=== PATIENT | female | born 1995 | race Caucasian/White ===

== ENCOUNTER 2020-09-14 08:00 | Outpatient (CLI) | payer OTHER ==
[2020-09-14 22:09] LABS: BACTERIAL VAGINOSIS DNA NEGATIVE (NEGATIVE); CANDIDA GLABRATA DNA NEGATIVE (NEGATIVE); CANDIDA GROUP DNA POSITIVE (NEGATIVE); CANDIDA KRUSEI DNA NEGATIVE (NEGATIVE); TRICHOMONAS VAGINALIS DNA NEGATIVE (NEGATIVE)
== END 2020-09-14 23:59 | disposition home or self-care (01) ==
LOC: LAB.N 08:00
PROVIDERS: ATTEND Family Medicine
DX: N76.0 Acute vaginitis (principal)
CPT/HCPCS: 87661; 87801

== ENCOUNTER 2020-11-30 08:00 | Outpatient (CLI) | payer OTHER ==
[2020-11-30 15:59] LABS: MUDS CUTOFF CONCENTRATIONS CUTOFF CONC BELOW:
[2020-11-30 16:14] LABS: BILIRUBIN,URINE NEGATIVE (NEGATIVE); GLUCOSE, URINE (UA) NEGATIVE (NEGATIVE); KETONES,URINE (UA) NEGATIVE (NEGATIVE); LEUKOCYTE ESTERASE, URINE NEGATIVE (NEGATIVE); NITRITE,URINE NEGATIVE (NEGATIVE); OCCULT BLOOD,URINE NEGATIVE (NEGATIVE); PROTEIN,URINE NEGATIVE (NEGATIVE); UROBILINOGEN,URINE 0.2 (NORMAL) E.U./dL (NORMAL)
[2020-11-30 16:18] LABS: BACTERIA,URINE None Seen /HPF (None Seen); CLARITY,URINE CLEAR (CLEAR); RBC,URINE 0-5 /HPF (0-5); SQUAMOUS EPITHELIAL CELL,UR RARE Squamous (<= Few); WBC,URINE 0-3 /HPF (0-5)
[2020-11-30 16:33] LABS: AMPHETAMINE SCREEN,URINE NEGATIVE (NEGATIVE); BARBITURATE SCREEN,UR NEGATIVE (NEGATIVE); BENZODIAZEPINES SCREEN, URINE NEGATIVE (NEGATIVE); COCAINE SCREEN URINE NEGATIVE (NEGATIVE); METHADONE SCREEN, URINE NEGATIVE (NEGATIVE); METHAMPHETAMINES SCREEN, URINE NEGATIVE (NEGATIVE); OPIATE SCREEN, URINE NEGATIVE (NEGATIVE); OXYCODONE SCREEN, URINE NEGATIVE (NEGATIVE); PROPOXYPHENE SCREEN, URINE NEGATIVE (NEGATIVE); THC CANNABINOID SCREEN, URINE NEGATIVE (NEGATIVE); TRICYCLIC ANTIDEPRESSANT,URINE NEGATIVE (NEGATIVE)
== END 2020-11-30 23:59 | disposition home or self-care (01) ==
LOC: LAB.WC 08:00
PROVIDERS: ATTEND Nurse Practitioner Obstetrics & Gynecology
DX: Z32.01 Encounter for pregnancy test, result positive (principal)
CPT/HCPCS: 80306; 81001; 87086

== ENCOUNTER 2020-12-05 08:00 | Outpatient (CLI) | payer OTHER ==
[2020-12-05 18:36] LABS: BASOPHILS # (AUTO) 0.1 10^3/uL (0.0-0.1); BASOPHILS % (AUTO) 0.4 %; EOSINOPHILS # (AUTO) 0.1 10^3/uL (0.0-0.7); EOSINOPHILS % (AUTO) 0.9 %; HCT - HEMATOCRIT 40.9 % (37.0-47.0); HGB - HEMOGLOBIN 13.6 g/dL (12.0-16.0); LYMPHOCYTES # (AUTO) 2.9 10^3/uL (1.5-3.5); LYMPHOCYTES % (AUTO) 21.3 %; MEAN CORPUSCULAR HEMOGLOBIN 31.4 pg (27.0-31.0); MEAN CORPUSCULAR HGB CONC 33.3 g/dL (32.0-36.0); MEAN CORPUSCULAR VOLUME 94.5 fL (81.0-99.0); MEAN PLATELET VOLUME 9.3 fL (7.9-10.8); MONOCYTES # (AUTO) 1.1 10^3/uL (0.0-1.0); MONOCYTES % (AUTO) 8.3 %; NEUTROPHILS # (AUTO) 9.2 10^3/uL (1.5-6.6); NEUTROPHILS % (AUTO) 68.8 %; PLT - PLATELET COUNT 356 10^3/uL (130-450); RED BLOOD COUNT 4.33 10^6/uL (4.20-5.40); RED CELL DISTRIBUTION WIDTH 11.9 % (12.0-15.0); WHITE BLOOD COUNT 13.4 x10^3/uL (4.8-10.8)
[2020-12-06 08:47] LABS: HIV AG/AB 4TH GEN NON-REACTIVE (NON-REACTIVE)
[2020-12-06 12:26] LABS: HEPATITIS C ANTIBODY NON-REACTIVE (NON-REACTIVE)
[2020-12-06 12:28] LABS: HEPATITIS B SURFACE ANTIGEN NON-REACTIVE (NON-REACTIVE)
== END 2020-12-05 23:59 | disposition home or self-care (01) ==
LOC: LAB.WCP 08:00
PROVIDERS: ATTEND Nurse Practitioner Obstetrics & Gynecology
DX: Z36.89 Encounter for other specified antenatal screening (principal)
CPT/HCPCS: 36415; 85025; 86592; 86762; 86787; 86803; 86850; 86900; 86901; 87340; 87389

== ENCOUNTER 2020-12-08 09:24 | Outpatient (CLI) | payer OTHER ==
--- NOTE | 2020-12-08 17:57 | Ultrasound Report ---
PROCEDURE: OB First Trimester w/TV INDICATIONS: +PREG TEST OUTSIDE/PRIOR DATING DATA: Last menstrual period (LMP): 09/01/2020. LMP-based estimated date of delivery (NELLIE): 07/06/2021. First dating scan (date and location): 12/08/2020. Estimated date of delivery (NELLIE) from first dating scan: 07/14/2021. The below data below was generated using the ultrasound estimated NELLIE of 12/08/2020 TECHNIQUE: Real-time scanning was performed of the fetus and maternal pelvic organs, with image documentation. Endovaginal scanning was also performed to better visualize the fetus and maternal ovaries. COMPARISON: None available FINDINGS: Embryo: There is an intrauterine gestational sac seen, with a pole present, which measures 2.2 cm, which corresponds to an estimated gestational age of 8 weeks 6 days. cardiac activity is s een, with a measured heart rate of 185 bpm. No significant perigestational/subchorionic hemorrhage can be seen. Measurement variability in dating: +/- 4 weeks by LMP, +/- 7 days by mean sac diameter (use before 6 weeks gestation if crown-rump length not able to be measured), +/- 5 days by crown-rump length (6-12 weeks gestation). Maternal organs: Ovaries are within normal limits, with a left ovarian corpus luteum seen. IMPRESSION: Single live intrauterine . There is an 8 day discrepancy between the estimated gestational age based upon these images and the e stimated gestational age based upon the given date of the last menstrual period. Please correlate wit h precise clinical data. Reviewed by: Magno Sequeira MD on 12/08/2020 4:56 PM JEFFERY Approved by: Magno Sequeira MD on 12/08/2020 4:56 PM JEFFERY Station ID: [id number]
== END 2020-12-08 09:25 | disposition home or self-care (01) ==
LOC: DI 09:24
PROVIDERS: ATTEND Nurse Practitioner Obstetrics & Gynecology
DX: Z32.01 Encounter for pregnancy test, result positive (principal)

== ENCOUNTER 2020-12-24 08:00 | Outpatient (CLI) | payer OTHER ==
[2020-12-24 21:42] LABS: CHLAMYDIA TRACHOMATIS DNA NEGATIVE (NEGATIVE); NEISSERIA GONORRHOEAE DNA NEGATIVE (NEGATIVE); TRICHOMONAS VAGINALIS DNA NEGATIVE (NEGATIVE)
== END 2020-12-24 23:59 | disposition home or self-care (01) ==
LOC: LAB.WC 08:00
PROVIDERS: ATTEND Advanced Practice Midwife
DX: Z34.00 Encounter for supervision of normal first pregnancy, unspecified trimester (principal); Z36.89 Encounter for other specified antenatal screening
CPT/HCPCS: 87491; 87591; 87661

== ENCOUNTER 2021-01-22 08:00 | Outpatient (CLI) | payer OTHER ==
[2021-01-22 19:29] LABS: BILIRUBIN,URINE NEGATIVE (NEGATIVE); CLARITY,URINE CLEAR (CLEAR); GLUCOSE, URINE (UA) NEGATIVE (NEGATIVE); KETONES,URINE (UA) NEGATIVE (NEGATIVE); LEUKOCYTE ESTERASE, URINE NEGATIVE (NEGATIVE); NITRITE,URINE NEGATIVE (NEGATIVE); OCCULT BLOOD,URINE NEGATIVE (NEGATIVE); PH,URINE 6.5 PH (5.0-7.5); PROTEIN,URINE NEGATIVE (NEGATIVE); UROBILINOGEN,URINE 0.2 (NORMAL) E.U./dL (NORMAL)
[2021-01-22 20:23] LABS: BACTERIA,URINE Few /HPF (None Seen); RBC,URINE None Seen /HPF (0-5); SQUAMOUS EPITHELIAL CELL,UR MOD Squamous (<= Few); WBC,URINE 0-3 /HPF (0-5)
== END 2021-01-22 23:59 | disposition home or self-care (01) ==
LOC: LAB.WC 08:00
PROVIDERS: ATTEND Advanced Practice Midwife
DX: R30.0 Dysuria (principal)
CPT/HCPCS: 81001; 87086

== ENCOUNTER 2021-01-22 10:55 | Outpatient (CLI) | payer OTHER ==
[2021-01-23 12:17] LABS: AGE RISK DOWN SYNDROME 1 IN 929; CALC'D GESTATIONAL AGE 15.3 weeks; CIGARETTE SMOKER? NOT GIVEN; DONOR AGE: EGG RETRIEVAL NOT GIVEN; DONOR EGG NO; ESTRIOL MOM 1.32; HX OF NEURAL TUBE DEFECTS NO; INHIBIN A MOM 0.94; INSULIN DEPEND DIABETIC NO; MATERNAL WEIGHT 155 lbs; MSS DOWN SYNDROME RISK <1 IN 5000; MSS3 TRISOMY 18 RISK <1 IN 5000; NUMBER OF FETUSES 1; PREV PREGNANCY DOWN SYND NO; RISK FOR ONTD 1 IN 3600
== END 2021-01-22 10:56 | disposition home or self-care (01) ==
LOC: LAB.N 10:55
PROVIDERS: ATTEND Advanced Practice Midwife
DX: O99.891 Other specified diseases and conditions complicating pregnancy (principal); R30.0 Dysuria; Z36.0 Encounter for antenatal screening for chromosomal anomalies; Z36.89 Encounter for other specified antenatal screening
CPT/HCPCS: 36415; 81001; 81511; 87086

== ENCOUNTER 2021-02-18 10:38 | Outpatient (CLI) | payer OTHER ==
--- NOTE | 2021-02-18 16:53 | Ultrasound Report ---
PROCEDURE: OB Detailed Eval INDICATIONS: SUPERVISION NORMAL OUTSIDE/PRIOR DATING DATA: Last menstrual period (LMP): 09/29/2020. LMP-based estimated date of delivery (NELLIE): 07/06/2021. First dating scan (date and location): 12/08/2020. Estimated date of delivery (NELLIE) from first dating scan: 07/14/2021. The below data below was generated using the provider provided NELLIE of 07/14/2021 TECHNIQUE: Real-time scanning was performed of the fetus, with image documentation and biometric measurements. Endovaginal scanning: Not performed COMPARISON: None. FINDINGS: General: A single living intrauterine gestation is present. Presentation: Vertex Placenta: Placental position is anterior, without previa. Amniotic fluid index: 15 cm, normal for gestational age. heart rate: 153 beats per minute. Maternal cervical canal: 4.2 cm long; normal length is 2.5 cm or more. biometrics: Biparietal diameter: 4.4 cm, 19 weeks 2 days Head circumference: 16.5 cm, 19 weeks 2 days Abdominal circumference: 13.7 cm, 19 weeks 2 days Femur length: 3 cm, 19 weeks 2 days Estimated gestational age from initial scan: not applicable. Composite gestational age from present scan: 19 weeks 2 days Estimated weight and percentile: 284 g, 55th percentile Measurement variability in biometric dating: +/- 10 days from 12-20 weeks gestation, +/- 2 weeks from 20-30 weeks gestation, +/- 3 weeks at 30 weeks gestation or later. Anatomic survey: Neuro: Ventricles are normal at less than 10 mm. Cisterna magna is normal at 3-11 mm. Cerebellum i s normal in size and morphology. Nuchal skin fold: Normal at less than 6 mm between 14 and 20 weeks gestational age. Face: Nose and lips, facial profile are normal. Spine: No evidence for spina bifida. Heart: 4-chambered heart is present; cardiac outflow tracts are not well seen Diaphragm: Diaphragm is intact. Stomach: Left-sided stomach is present. Kidneys: No hydronephrosis. Normal is less than 5 mm in 2nd trimester, less than 7 mm in 3rd trimester. Cord: 3 vessel cord has orthotopic insertion. Bladder: Normal in size. Extremities: All 4 extremities are visualized. IMPRESSION: Single live intrauterine gestation. cardiac outflow tracts not well visualized; repeat exam recommended. Otherwise normal anatomic survey. Reviewed by: Matt Biggs MD on 02/18/2021 4:51 PM PDT Approved by: Matt Biggs MD on 02/18/2021 4:51 PM PDT Station ID: [id number]
== END 2021-02-18 10:39 | disposition home or self-care (01) ==
LOC: DI 10:38
PROVIDERS: ATTEND Advanced Practice Midwife
DX: Z34.00 Encounter for supervision of normal first pregnancy, unspecified trimester (principal)

== ENCOUNTER 2021-02-19 13:27 | Outpatient (CLI) | payer OTHER ==
[2021-02-19 18:18] LABS: HCT - HEMATOCRIT 38.7 % (37.0-47.0); MEAN CORPUSCULAR HEMOGLOBIN 32.4 pg (27.0-31.0); MEAN CORPUSCULAR HGB CONC 33.6 g/dL (32.0-36.0); MEAN CORPUSCULAR VOLUME 96.5 fL (81.0-99.0); MEAN PLATELET VOLUME 9.3 fL (7.9-10.8); RED BLOOD COUNT 4.01 10^6/uL (4.20-5.40); WHITE BLOOD COUNT 13.5 x10^3/uL (4.8-10.8)
[2021-02-19 18:22] LABS: POTASSIUM 3.8 mmol/L (3.5-5.0)
== END 2021-02-19 13:28 | disposition home or self-care (01) ==
LOC: LAB.N 13:27
PROVIDERS: ATTEND Nurse Practitioner Obstetrics & Gynecology
DX: R06.02 Shortness of breath (principal)
CPT/HCPCS: 36415; 80051; 85027

== ENCOUNTER 2021-02-24 18:03 | Outpatient (CLI) | payer OTHER ==
--- NOTE | 2021-02-24 21:37 | Ultrasound Report ---
PROCEDURE: OB F/U or Repeat INDICATIONS: SCREENING FOR CHROMOSOMAL ANOMALIES OUTSIDE/PRIOR DATING DATA: Last menstrual period (LMP): 09/29/2020. LMP-based estimated date of delivery (NELLIE): 07/06/2021. First dating scan (date and location): 12/08/2020. Estimated date of delivery (NELLIE) from first dating scan: 07/14/2021. The below data below was generated using the first trimester NELLIE of 07/14/2021 TECHNIQUE: Real-time scanning was performed of the fetus, with image documentation and biometric measurements. Endovaginal scanning: Not performed COMPARISON: 02/18/2021 FINDINGS: General: A single living intrauterine gestation is present. Presentation: Cephalic Placenta: Placental position is anterior, without previa. Amniotic fluid index: 18.2 cm, normal for gestational age. heart rate: 148 beats per minute. Maternal cervical canal: Closed and 3.9 cm long; normal length is 2.5 cm or more. Other: 4 chambered heart and cardiac outflow tracts were well seen and appear normal. IMPRESSION: 1. Single live intrauterine . 2. Completion of anatomic survey with identification of normal 4 chambered heart and cardiac outflow tracts. Reviewed by: Lashanda Senior MD on 02/24/2021 9:35 PM PDT Approved by: Lashanda Senior MD on 02/24/2021 9:35 PM PDT Station ID: [id number]
== END 2021-02-24 18:04 | disposition home or self-care (01) ==
LOC: DI 18:03
PROVIDERS: ATTEND Nurse Practitioner Obstetrics & Gynecology
DX: Z36.0 Encounter for antenatal screening for chromosomal anomalies (principal)

== ENCOUNTER 2021-04-04 09:14 | Outpatient (CLI) | payer OTHER ==
[2021-04-04 18:01] LABS: HCT - HEMATOCRIT 39.9 % (37.0-47.0); MEAN CORPUSCULAR HEMOGLOBIN 32.3 pg (27.0-31.0); MEAN CORPUSCULAR HGB CONC 32.6 g/dL (32.0-36.0); MEAN PLATELET VOLUME 8.9 fL (7.9-10.8); RED BLOOD COUNT 4.03 10^6/uL (4.20-5.40); RED CELL DISTRIBUTION WIDTH 12.6 % (12.0-15.0); WHITE BLOOD COUNT 13.2 x10^3/uL (4.8-10.8)
== END 2021-04-04 09:15 | disposition home or self-care (01) ==
LOC: LAB.N 09:14
PROVIDERS: ATTEND Nurse Practitioner Obstetrics & Gynecology
DX: Z36.89 Encounter for other specified antenatal screening (principal)
CPT/HCPCS: 36415; 82950; 85027

== ENCOUNTER 2021-04-12 14:00 | Outpatient (CLI) | payer OTHER ==
[2021-04-12 15:42] LABS: BILIRUBIN,URINE NEGATIVE (NEGATIVE); GLUCOSE, URINE (UA) NEGATIVE (NEGATIVE); KETONES,URINE (UA) NEGATIVE (NEGATIVE); LEUKOCYTE ESTERASE, URINE NEGATIVE (NEGATIVE); NITRITE,URINE NEGATIVE (NEGATIVE); OCCULT BLOOD,URINE NEGATIVE (NEGATIVE); PROTEIN,URINE NEGATIVE (NEGATIVE); UROBILINOGEN,URINE 0.2 (NORMAL) E.U./dL (NORMAL)
[2021-04-12 15:45] LABS: BACTERIA,URINE Rare /HPF (None Seen); CLARITY,URINE CLEAR (CLEAR); RBC,URINE 0-5 /HPF (0-5); SQUAMOUS EPITHELIAL CELL,UR RARE Squamous (<= Few); WBC,URINE 0-3 /HPF (0-5)
== END 2021-04-12 23:59 | disposition home or self-care (01) ==
LOC: LAB.WC 14:00
PROVIDERS: ATTEND Nurse Practitioner Obstetrics & Gynecology
DX: Z34.90 Encounter for supervision of normal pregnancy, unspecified, unspecified trimester (principal)
CPT/HCPCS: 81001; 86769; 87086

== ENCOUNTER 2021-04-12 15:03 | Outpatient (CLI) | payer OTHER | END 2021-04-12 15:04 | disposition home or self-care (01) | LOC: LAB.N 15:03 | PROVIDERS: ATTEND Nurse Practitioner Obstetrics & Gynecology | DX: Z01.84 Encounter for antibody response examination (principal) | CPT/HCPCS: 86769 ==

== ENCOUNTER 2021-06-18 08:00 | Outpatient (CLI) | payer OTHER | END 2021-06-18 23:59 | LOC: LAB.WC 08:00 | PROVIDERS: ATTEND Nurse Practitioner Obstetrics & Gynecology | DX: Z36.85 Encounter for antenatal screening for Streptococcus B (principal) | CPT/HCPCS: 87797 ==

== ENCOUNTER 2021-06-28 08:00 | Outpatient (CLI) | payer OTHER | END 2021-06-28 23:59 | disposition home or self-care (01) | LOC: LAB.WC 08:00 | PROVIDERS: ATTEND Nurse Practitioner Obstetrics & Gynecology | DX: R30.0 Dysuria (principal) | CPT/HCPCS: 87086 ==

== ENCOUNTER 2021-07-22 10:16 | Outpatient (CLI) | payer OTHER ==
[2021-07-22 17:02] VITALS: BP 116/79
--- NOTE | 2021-07-25 16:19 | PROCEDURE REPORT ---
- HPI Diagnosis/Indication for NST: Other (41 weeks gestation) Current EDU 07/14/21 Gestation 41 Weeks and 1 Days 2 Para 1 Vital Signs Blood Pressure 127/85 H 07/22/21 10:32 Temperature 98.4 F 07/22/21 10:36 Heart Rate 76 07/22/21 10:36 Respiratory Rate 16 07/22/21 10:36 Blood Pressure 116/79 07/22/21 10:45 O2 Saturation - NST Procedure NST Procedure Start Date 07/22/21 Start Time 10:26 Stop Time 11:43 Vibroacoustic Stimulation Used Yes Patient States Movement Yes - Results and Plan Plan: Patient is a 26-year-old G2, P1 at 41 weeks 1 day gestation here for scheduled NST. NST Performed 07/22/2021 NST Read 07/22/2021 FHT: 120 beats per minute baseline, moderate variability, accelerations present, no decelerations. [place]: Quiescent Diagnosis 41 weeks gestation Reactive NST Continue with twice weekly NST.
== END 2021-07-22 11:45 | disposition home or self-care (01) ==
LOC: WFO 10:16 → FBP 10:20 → WFO 11:45
PROVIDERS: ATTEND Obstetrics & Gynecology
DX: O48.0 Post-term pregnancy (principal); Z3A.41 41 weeks gestation of pregnancy
CPT/HCPCS: 59025; 99214

== ENCOUNTER 2021-07-23 18:05 | Inpatient (IN) | payer OTHER ==
[2021-07-23] MEDS ORDERED: METHYLERGONOVINE 0.2 MG/ML VIAL IM PRN (18:29)
[2021-07-23] MEDS ORDERED: TERBUTALINE 1 MG/ML VIAL SUBQ PRN (18:29)
[2021-07-23] MEDS ORDERED: OXYTOCIN 10 UNIT/ML VIAL IM PRN (18:29)
[2021-07-23] MEDS ORDERED: fentaNYL 100 MCG/2 ML VIAL IVP PRN (18:29)
[2021-07-23] MEDS ORDERED: miSOPROStoL 200 MCG TABLET BC PRN (18:29)
[2021-07-23] MEDS ORDERED: LIDOCAINE-MPF 1% 30 ML VIAL ID PRN (18:29)
[2021-07-23] MEDS ORDERED: CARBOPROST TROMETHAMINE 250 MCG/ML AMP IM PRN (18:29)
[2021-07-23] MEDS ORDERED: TRANEXAMIC ACID IN NACL 1,000 MG/100 ML BAG IV PRN (18:29)
[2021-07-23] MEDS ORDERED: AMPICILLIN 2 GM in SODIUM CHLORIDE 0.9% MINIBAG 100 ML IV ONE (18:29)
[2021-07-23] MEDS ORDERED: SODIUM CHLORIDE FLUSH 0.9% 10 ML SYRINGE IVP PRN (18:29)
[2021-07-23] MEDS ORDERED: OXYTOCIN/SODIUM CHLORIDE 500 ML IV PRN (18:29)
[2021-07-23] MEDS ORDERED: LACTATED RINGERS 500 ML IV ONE (18:29)
[2021-07-23] MEDS ORDERED: miSOPROStoL 200 MCG TABLET PR PRN (18:29)
[2021-07-23] MEDS ORDERED: SODIUM CHLORIDE FLUSH 0.9% 10 ML SYRINGE IVP SCH (19:00)
[2021-07-23] MEDS ORDERED: AMPICILLIN 1 GM in SODIUM CHLORIDE 0.9% MINIBAG 100 ML IV SCH (19:00)
[2021-07-23] MEDS ORDERED: ROPIVACAINE 0.2% 200 MG/100 ML BAG EP ONE (19:10)
[2021-07-23 19:24] LABS: BASOPHILS % (AUTO) 0.6 %; HCT - HEMATOCRIT 43.3 % (37.0-47.0); HGB - HEMOGLOBIN 15.1 g/dL (12.0-16.0); LYMPHOCYTES % (AUTO) 21.8 %; MEAN CORPUSCULAR HEMOGLOBIN 32.3 pg (27.0-31.0); MEAN CORPUSCULAR HGB CONC 34.9 g/dL (32.0-36.0); MEAN CORPUSCULAR VOLUME 92.7 fL (81.0-99.0); MEAN PLATELET VOLUME 9.7 fL (7.9-10.8); MONOCYTES % (AUTO) 8.7 %; PLT - PLATELET COUNT 301 10^3/uL (130-450); RED BLOOD COUNT 4.67 10^6/uL (4.20-5.40); RED CELL DISTRIBUTION WIDTH 12.6 % (12.0-15.0); WHITE BLOOD COUNT 17.7 x10^3/uL (4.8-10.8)
[2021-07-23] MEDS: LACTATED RINGERS 1,000 ML IV SCH ×2 (19:28→21:12)
[2021-07-23 19:39] LABS: ABNORMAL LYMPHS % (MANUAL) 0 %; BAND NEUTROPHILS % (MANUAL) 0 %
[2021-07-23] MEDS ORDERED: ePHEDrine 50 MG/ML VIAL IVP ONE (19:53)
[2021-07-23] MEDS ORDERED: ONDANSETRON 4 MG/2 ML VIAL IVP PRN (19:55)
[2021-07-23] MEDS ORDERED: NALOXONE 0.4 MG/ML VIAL IVP PRN (19:55)
[2021-07-23] MEDS ORDERED: diphenhydrAMINE INJ 50 MG/ML VIAL IVP PRN (19:55)
[2021-07-23] MEDS ORDERED: NALBUPHINE 10 MG/ML AMP IVP PRN (19:55)
[2021-07-23] MEDS ORDERED: ePHEDrine 50 MG/ML VIAL IVP PRN (19:55)
[2021-07-23] MEDS ORDERED: METOCLOPRAMIDE 10 MG/2 ML VIAL IVP PRN (19:55)
[2021-07-23] MEDS ORDERED: ROPIVACAINE 0.2% 200 MG/100 ML BAG EP PRN (19:55)
--- NOTE | 2021-07-23 20:01 | ANESTHESIA ---
Pre-Anesthesia VS, & Labs - Diagnosis active labor - Procedure labor epidural Height: 5 ft 7 in - NPO >8 hours - Is Patient ?: Yes - Lab Results Current Lab Results: Laboratory Tests 07/23/21 18:30: WBC 17.7 H, RBC 4.67, Hgb 15.1, Hct 43.3, MCV 92.7, MCH 32.3 H, MCHC 34.9, RDW 12.6, Plt Count 301, MPV 9.7 Fish Bones: 07/23/21 18:30 Home Medications and Allergies Active Medications Carboprost Tromethamine (Carboprost Tromethamine 250 Mcg/Ml Amp) 250 mcg IM ONCE PRN PRN Reason: Hemorrhage Stop: 07/28/21 18:28 Diphenhydramine HCl (Diphenhydramine Inj 50 Mg/Ml Vial) 12.5 - 25 mg IVP Q6HR PRN PRN Reason: ITCHING Ephedrine Sulfate (Ephedrine 50 Mg/Ml Vial) 5 mg IVP Q5M PRN PRN Reason: For SBP<100;give until SBP>100 Fentanyl (Fentanyl 100 Mcg/2 Ml Vial) 50 mcg IVP Q1H PRN PRN Reason: Severe Pain (score 7-10) Oxytocin/Sodium Chloride (Pitocin/Sodium Chloride) 500 mls @ 999 mls/hr IV PRN PRN; Protocol PRN Reason: POST- HEMORR PREVENTION Tranexamic Acid (Tranexamic 1,000 Mg/100ml-Nacl) 1,000 mg in 100 mls @ 600 mls/hr IV Q30M PRN PRN Reason: EBL >1200mL and within 3hr Lactated Ringer's (Lr) 1,000 mls @ 125 mls/hr IV .Q8H KIMBERLY Ampicillin Sodium 1 gm/ Sodium (Chloride) 100 mls @ 200 mls/hr IV Q4H KIMBERLY Ropivacaine (Naropin 0.2%) 200 mg in 100 mls @ 0 mls/hr EP PRN PRN; Protocol PRN Reason: PAIN Lidocaine HCl (Lidocaine-Mpf 1% 30 Ml Vial) 30 ml ID ONCE PRN PRN Reason: PERINEAL REPAIR Stop: 07/24/21 18:30 Methylergonovine Maleate (Methylergonovine 0.2 Mg/Ml Vial) 0.2 mg IM ONCE PRN PRN Reason: Hemorrhage Stop: 07/28/21 18:28 Metoclopramide HCl (Metoclopramide 10 Mg/2 Ml Vial) 10 mg IVP Q6HR PRN PRN Reason: Nausea / Vomiting Misoprostol (Misoprostol 200 Mcg Tablet) 600 mcg BC ONCE PRN PRN Reason: Hemorrhage Stop: 07/28/21 18:28 Misoprostol (Misoprostol 200 Mcg Tablet) 800 mcg DC ONCE PRN PRN Reason: Hemorrhage Stop: 07/28/21 18:28 Nalbuphine HCl (Nalbuphine 10 Mg/Ml Amp) 2.5 - 5 mg IVP Q4H PRN PRN Reason: ITCHING Naloxone HCl (Naloxone 0.4 Mg/Ml Vial) 0.1 mg IVP Q2M PRN PRN Reason: RR<8 Ondansetron HCl (Ondansetron 4 Mg/2 Ml Vial) 4 mg IVP Q6HR PRN PRN Reason: Nausea / Vomiting Oxytocin (Oxytocin 10 Unit/Ml Vial) 10 unit IM ONCE PRN PRN Reason: Step One if no IV access. Stop: 07/28/21 18:28 Sodium Chloride (Sodium Chloride Flush 0.9% 10 Ml Syringe) 10 ml IVP PRN PRN PRN Reason: NEEDED PER PROVIDER ORDERS Sodium Chloride (Sodium Chloride Flush 0.9% 10 Ml Syringe) 10 ml IVP Q8H KIMBERLY Terbutaline Sulfate (Terbutaline 1 Mg/Ml Vial) 0.25 mg SUBQ ONCE PRN PRN Reason: Tachystole Stop: 07/28/21 18:28 Allergies/Adverse Reactions: Allergies Allergy/AdvReac Type Severity Reaction Status Date / Time No Known Drug Allergies Allergy Verified 07/23/21 19:17 Anes History & Medical History - Anesthetic History Anesthesia Complications: reports: No previous complications Family history of Anesthesia Complications: Denies Family history of Malignant Hyperthermia: Denies - Medical History History of Cancer?: No Exam General: Alert, Oriented x3, Cooperative Dental: WNL Mouth Openin Fingerbreadth Neck Mobility: Normal Mallampati classification: I Thyromental Distance: 4-6 cm Respiratory: Lungs clear Cardiovascular: Regular rate Plan Anesthesia Type: Epidural Consent for Procedure(s) Verified and Reviewed: Yes Code Status: Attempt Resuscitation ASA classification: 2-Mild systemic disease Is this case an emergency?: No
--- NOTE | 2021-07-23 20:41 | HISTORY & PHYSICAL EXAMINATION ---
Admit History - : 2 Parity: 1 - Mother's Labs Mother's Blood Type: positive: AB Mother's RH: positive: Positive GBS: positive: Group B Strep Positive Rubella Status: positive: Immune - Other Maternal History Other Maternal History: ID: Patient is a 26-year-old G2, P1 at 41 and 2 weeks estimated gestational age here in labor. HPI: has been followed by midwifery service.HPI: Antepartum course has been uncomplicated. Patient is GBS positive. She has an follow-up phobia and w ants to avoid all discussion and palpation of her umbilicus. Patient has had one spontaneous vaginal delivery that was uncomplicated. Delivered a baby girl weighing 8 pounds 10 ounces. Patient estimates that current , female infant named Akilah, is roughly the same size. She was awaiting induction of labor on 07/26/2021. Contractions started earlier this afternoon. Upon admission she was found to be 5 cm dilated. She did desires epidural and epidural had been placed immediately after admission..No vaginal bleeding/ no loss of fluid. Endorses movement. Has been vaccinated for COVID, Moderna x2. OB HX: LMP: 09/01/2020 NELLIE by LMP:07/06/2021 Initial U/S:12/08/2020 @8w6d NOT c/w LMP with NELLIE 07/14/2021 8d difference FINAL NELLIE: 07/14/2021 AB pos/Rubella immune VZV:non immune Genetic testing: Quad- Negative FAS: WNL with the exception of incomplete visualization of cardiac outflow tracts. Anterior placenta, no previa. 3VC. Size c/w dating (EFW 55%tile) Glucola 103 Influenza: declined TDAP 05/01 COVID - Moderna #1 04/22 Moderna #2 received in may. GBS 06/18/2021 POSITIVE HSV: denies self and partner Breast pump Rx- has one already that she likes MOD: . Desires epidural; It's a GIRL!; : Shen (deployed to [facility] until ) Daughter: Mandy 8#10oz. pp contraception: natural family planning; possibly vasectomy pap:12/20/2019 NORMAL HPV Neg Past Medical History: blood clot in arm (superficial 2/2 blood draw) migraines PCOS omphalophobia syncope r/t phlebotomy Past Surgical History: Unremarkable SOC HX: Lives in [place] with and daughter Originally from [place], [place] SAHM JAYCOB [place]otti No KATHY FH: MGM with breast cancer ROS: As per HPI, otherwise remaining systems are negative PE: VS: 98.4 103 116/93 22 GEN: NAD HEAD: NCAT EYES: No scleral icterus or conjunctival injection CV: RR RESP: normal effort ABD: gravid, S&NT PSYCH: appropriate affect NEURO: alert and oriented EXT: WWP EFM 160 mod teresita 15x15 accels no decels TOCO: Q3-4 min A/P: Patient is a 26-year-old G2, P1 at 41 and 2 weeks estimated gestational age here in labor. LABOR: GBS positive. No intervention to augment labor process until abx exposure >= 4 H -AROM as indicated -Pitocin augmentation as indicated PAIN: Epidural placed at admission FWB: vertex, well grown, Cat I tracing, GBS positive -Ampicillin her GBS ppx -CEFM Anticipate In-patient care Meds/Allgy - Allergies Allergies/Adverse Reactions: Allergies Allergy/AdvReac Type Severity Reaction Status Date / Time No Known Drug Allergies Allergy Verified 07/23/21 19:17
[2021-07-23 20:53] LABS: DIFFERENTIAL COMMENT MANUAL DIFFERENTIAL; LYMPHOCYTES # (MANUAL) 3.9 10^3/uL (1.5-3.5); LYMPHOCYTES % (MANUAL) 22 %; MONOCYTES # (MANUAL) 1.1 10^3/uL (0.0-1.0); NEUTROPHILS # (MANUAL) 12.7 10^3/uL (1.5-6.6); PLATELET ESTIMATE, MANUAL NORMAL (130-450,000) (NORMAL); PLATELET MORPHOLOGY NORMAL APPEARANCE (NORMAL); RBC MORPHOLOGY (MULTIPLE) NORMAL APPEARANCE (NORMAL); WBC MORPHOLOGY (MULTIPLE) NORMAL APPEARANCE (NORMAL)
[2021-07-23] MEDS ORDERED: fentaNYL 100 MCG/2 ML VIAL ONE (21:41)
[2021-07-23] MEDS ORDERED: ROPIVACAINE 0.2% PF 10 ML VIAL ONE (21:42)
--- NOTE | 2021-07-23 21:48 | CONSULTATION NOTE ---
Consultation Report: Called for new pain with contractions @L. sensory level assessed at L1. Epidural dosed with 8cc 0.2% and Fentanyl 100mcg. Patient states contraction pain is improved after 2 contractions. Will continue to follow.
[2021-07-23] MEDS ORDERED: LACTATED RINGERS 1,000 ML IV SCH (23:45)
[2021-07-23] MEDS ORDERED: ONDANSETRON ODT 4 MG TABLET TL PRN (23:50)
[2021-07-23] MEDS ORDERED: SIMETHICONE CHEW 80 MG TABLET PO PRN (23:50)
[2021-07-23] MEDS ORDERED: HYDROCORTISONE 1% CREAM 28 GM TUBE PR PRN (23:50)
--- NOTE | 2021-07-23 23:58 | DELIVERY NOTE ---
Delivery Note - Labor Labor: positive: Spontaneous - Delivery Method Delivery Method: positive: Spontaneous vaginal delivery - Presentation Presentation: positive: Vertex, OA - occiput anterior - Nuchal Cord Nuchal Cord: positive: Present, Reduced - Anesthetic Anesthetic Type: - Amniotic Fluid Description Amniotic Fluid Description: positive: Moderate meconium - Episiotomy Type Episiotomy Type: positive: None - Laceration Laceration: positive: None - Delivery Outcome Delivery Outcome: positive: Livebirth - State Line State Line: positive: Placed in direct skin contact with mother, Suctioned, Bulb syringe, Stimulated, [place] used [place] sex: positive: Female - Cord Cord: positive: 3 vessels - Placenta Placenta: positive: Intact, Expressed - Estimated Blood Loss Estimated Blood Loss (in cc): 70 - Post Delivery Events Post Delivery Events: positive: No post delivery events - Delivery Comments (Free Text/Narrative) Delivery Comments (Free Text/Narrative): STAGE I: Patient is a 26-year-old G2, P1 at 41 and 2 weeks estimated gestational age who presented in labor. Contractions estimated to have begun at 16:00. Ini tial SVE was 5/80/-2. Epidural for pain management placed shortly after admission. GBS positive. Received initial dose of ampicillin at 19:00 and was given in 30 minute bolus. No augmentation indicated. Patient progressed to complete at 22:40. Second dose of ampicillin initiated. Labored down until pushing initiated at 23:12. BBOW of water noted at introitus with meconium stained amniotic fluid noted on bedding, indicating rupture with forebag. SROM recorded at 23:12. Forebag was artificially ruptured at that time with moderate meconium staining confirmed. Category I tracing throughout Stage I labor. STAGE II: Patient pushed well for 6 minutes to deliver a viable female infant from vertex position. delivered without difficulty from direct OA position. Nuchal cord was noted and was easily reduced. Infant was delivered to maternal chest. cord was clamped x2 and cut after pulsations had ceased. Apgars 8/9. Weight pending. STAGE III: Placenta delivered at 23:27 with manual expression. It was examined and found to be intact. Perineum was examined and found to be intact. No repair indicated. QBL 70. Procedure was well tolerated and without complication.
[2021-07-24] MEDS: DOCUSATE SODIUM 100 MG CAPSULE PO PRN ×2 (09:17→20:17)
[2021-07-24] MEDS: ACETAMINOPHEN 500 MG TABLET PO PRN ×2 (13:32→21:26)
--- NOTE | 2021-07-24 20:01 | PROVIDER PROGRESS NOTE ---
Subjective - Prog Note Date Prog Note Date: 07/24/20 Prog Note Time: 17:30 - Subjective Pt reports feeling: Improved Subjective: Subjective Patient reports she is doing well. Lochia appropriate. Denies heavy bleeding. Ambulating without issue. Pelvic and abdominal pain well-controlled. Tolerating oral intake. Diet: Regular. Voiding without difficulty. Passing flatus. Denies BM. Patient is bonding with baby in room Breast feeding going well. Denies feeling lightheaded, dizzy or excessively fatigued. Objective General: Alert, oriented, no apparent distress. Cardiovascular: Regular rate. Regular rhythm. Lungs: No increased work of breathing. Abdomen: Uterus firm. Below umbilicus. No guarding or rebound. Assessment and Plan day 1. -Routine care -Anticipate discharge tomorrow Objective - Vital Signs/Intake & Output Vital Signs: Vital Signs x48h Temp Pulse Resp BP Pulse Ox 07/24/21 19:30 209.3 F H 76 20 114/80 07/24/21 17:29 98.6 F 78 16 120/77 100 Intake & Output: Intake & Output 07/21/21 07/22/21 07/23/21 07/24/21 23:59 23:59 23:59 23:59 Intake Total 3052.25 1383.75 Output Total 850 1600 Balance 2202.25 -216.25 - Lab Results Fish Bones: 07/23/21 18:30 Other Labs: Lab Results x24hrs 07/23/21 07/23/21 Range/Units 19:38 18:30 Neut # (Auto) Not Reportable Lymph # (Auto) Not Reportable Butts # (Auto) Not Reportable Eos # (Auto) Not Reportable Baso # (Auto) Not Reportable Absolute Nucleated RBC Not Reportable Total Counted 100 Band Neuts % (Manual) 0 (0 - 10) % Abnorm Lymph % (Manual) 0 % Nucleated RBC % Not Reportable Neutrophils # (Manual) 12.7 H (1.5-6.6) 10^3/uL Lymphocytes # (Manual) 3.9 H (1.5-3.5) 10^3/uL Monocytes # (Manual) 1.1 H (0.0-1.0) 10^3/uL Eosinophils # (Manual) 0.0 (0-0.7) 10^3/uL Basophils # (Manual) 0.0 (0-0.1) 10^3/uL Differential Comment MANUAL DIFFERENTIAL WBC Morphology NORMAL APPEARANCE (NORMAL) Platelet Estimate NORMAL (130-450,000) (NORMAL) Platelet Morphology NORMAL APPEARANCE (NORMAL) RBC Morph Micro Appear NORMAL APPEARANCE (NORMAL) Blood Type AB POSITIVE Antibody Screen NEGATIVE
[2021-07-24] MEDS: IBUPROFEN 600 MG TABLET PO PRN (20:17)
[2021-07-25] MEDS: ACETAMINOPHEN 500 MG TABLET PO PRN (06:35)
[2021-07-25] MEDS: IBUPROFEN 600 MG TABLET PO PRN (06:35)
--- NOTE | 2021-07-25 06:56 | Discharge Plan ---
Discharge Plan Problem Reviewed?: Yes Disposition: 01 Home, Self Care Condition: Good Additional Instructions or Follow Up instructions: Nothing in the vagina for 6 weeks: No intercourse, tampons, douching Call for: -Fever greater than 100.5 -Pain that does not improve with pain medication -Heavy bleeding in which you are soaking a pad an hour for 2 hours in a row -Pain in the legs (especially one sided), swelling in one leg and not the other, or difficulty/pain with breathing. No tub baths or hot tubs for 4 weeks Ibuprofen 600 mg by mouth every 6 hours as needed for pain Acetaminophen 500-1000 mg by mouth every 8 hours as needed for pain Docusate 100-200 mg by mouth twice a day as needed for constipation No Smoking: If you smoke, Please STOP! Call for help.
[2021-07-25 11:32] VITALS: BP 118/70
--- NOTE | 2021-07-25 14:25 | Labor Flowsheet ---
Labor Flowsheet Datetime Report Generated by CPN: 07/25/2021 14:24 Datetime: 07/25/2021 11:26 VITAL SIGNS NBP Sys/Epggy/Mean (mmHg): 118 : 70 : 81 Pulse: 75 Datetime: 07/25/2021 09:09 SpO2 (%): 100 Datetime: 07/23/2021 23:59 Respirations: 18 Datetime: 07/23/2021 23:39 Pain Presence: None/Denies Datetime: 07/23/2021 23:30 Stage of : Recovery PAIN Pain Scale: 0 Datetime: 07/23/2021 23:18 UTERINE ACTIVITY Monitor Mode: External Frequency (min): 2 Quality: Strong Duration (sec): 60-110 Pattern: Normal: <= 5 Contractions in 10 Minutes Resting Tone (Palpate): Relaxed ASSESSMENT A Monitor Mode: Telemetry FHR Baseline Rate : 130 Variability: Minimal - Undetectable to <=5 bpm Accelerations: None Decelerations: Late; Variable Actions for Decelerations: Provider Notified Category: Category II Datetime: 07/23/2021 23:15 Patient Care Comments: 525ml UO Datetime: 07/23/2021 23:14 Pushing Position: Pushing Right Side Pushing Progress: Descent with Pushing Datetime: 07/23/2021 23:12 Patient Position/Activity: Right Lateral STAGE 2 Pushing: Coached on Pushing Datetime: 07/23/2021 23:11 Membrane Comments: AROM forebag by MD Datetime: 07/23/2021 23:09 I/O Interventions: [place] Discontinued Datetime: 07/23/2021 23:08 Membrane Status: Ruptured Membranes Rupture Method: Spontaneous Amniotic Fluid Color: Light Meconium Amniotic Fluid Amount: Moderate Stage 2 [facility] Datetime: 07/23/2021 23:01 Monitor Interventions for UA: [place] Adjusted Monitor Interventions for FHR: Ultrasound Adjusted Datetime: 07/23/2021 23:00 LaborFlag: Labor Datetime: 07/23/2021 22:52 COMMUNICATION Communication: Provider at Bedside Communication Comments: discussing POC with pt Datetime: 07/23/2021 22:41 Hygiene: Aubree Care; Underpad Changed Datetime: 07/23/2021 22:40 VAGINAL EXAM Dilatation (cm): 10.0 Effacement (%): 100 Station: 3 Exam by: M Juancho RN Vaginal Bleeding: Normal Show Datetime: 07/23/2021 21:40 Epidural Procedure Other: Redose Anesthesia Level Check: T9 Anesthesia Comments: epidural bolus and rate increase by [employer]SE OPERATOR Datetime: 07/23/2021 21:29 Temperature (C): 37.1 Datetime: 07/23/2021 21:25 PATIENT CARE IV/Blood Work: IV Bolus Started Datetime: 07/23/2021 21:18 Pain Type: Contraction Pain Location: Left Hip Pain Relief Measures: Comfort Measures Pain Coping: Breathing Through Contractions Comfort Measures: Breathing/Relaxation Datetime: 07/23/2021 20:52 Provider Reviewed Strip: Yes Datetime: 07/23/2021 20:25 Pain Assessment Comments: reports awareness of ctx on L side, denies needs Datetime: 07/23/2021 20:21 Comments: audible movement Datetime: 07/23/2021 19:54 Contraction Comments: monitors adjusted with pt consent Datetime: 07/23/2021 19:49 Headache: Denies Breath Sounds, Left: Clear and Equal Breath Sounds, Right: Clear and Equal Nausea/Vomiting: Denies RUQ Epigastric Pain: Denies Datetime: 07/23/2021 19:47 MEDICATIONS Medication Comments: ephedrine IV by anesthesia Datetime: 07/23/2021 19:36 Epidural Procedure: Completed Datetime: 07/23/2021 19:22 MATERNAL ASSESSMENT Level of Consciousness: Alert Datetime: 07/23/2021 19:09 PROCEDURE TIME OUT Procedure Verify: Correct Patient Identity; Correct Side and Site are Marked; Accurate Procedure Co nsent Form; Agreement on Procedure to be Done; Correct Patient Position; Addressed Need to Administer Antibiotics or Fluids for Irrigation; Safety Precautions Based on Patient History or Medication Use ANESTHESIA Anesthesia Plans: Epidural Epidural Positioning: Sitting
--- NOTE | 2021-07-26 14:27 | DISCHARGE SUMMARY ---
Discharge Summary Admit Date: 07/24/21 Discharge Date: 07/25/21 Discharging Provider: Madiha Condition at Discharge: Good Discharge Disposition: 01 Home, Self Care - DIAGNOSES Admission Diagnoses: IUP at 41+2 wga Active labor Anxiety Discharge Diagnoses with Status of Each Condition: Same and delivery of term gestation - HPI History of Present Illness: Patient is a 26-year-old G2, P1 at 41 and 2 weeks estimated gestational age admitted in labor. HPI: has been followed by midwifery service.HPI: Antepartum course has been uncomplicated. Patient is GBS positive. She has an follow-up phobia and wants to avoid all discussion and palpation of her umbilicus. Patient has had one spontaneous vaginal delivery that was uncomplicated. Delivered a baby girl weighing 8 pounds 10 ounces. Patient estimated that current , female infant named Akilah, is roughly the same size. She was awaiting induction of labor on 07/26/2021. Contractions started earlier the afternoon of presentation. Upon admission she was found to be 5 cm dilated. She did desired epidural and epidural had been placed immediately after admission. No vaginal bleeding/ no loss of fluid. Endorses movement. Has been vaccinated for COVID, Moderna x2. OB HX: LMP: 09/01/2020 NELLIE by LMP:07/06/2021 Initial U/S:12/08/2020 @8w6d NOT c/w LMP with NELLIE 07/14/2021 8d difference FINAL NELLIE: 07/14/2021 AB pos/Rubella immune VZV:non immune Genetic testing: Quad- Negative FAS: WNL with the exception of incomplete visualization of cardiac outflow tracts. Anterior placenta, no previa. 3VC. Size c/w dating (EFW 55%tile) Glucola 103 Influenza: declined TDAP 05/01 COVID - Moderna #1 04/22 Moderna #2 received in may. GBS 06/18/2021 POSITIVE HSV: denies self and partner Breast pump Rx- has one already that she likes MOD: . Desires epidural; It's a GIRL!; : Shen (deployed to [facility] until ) Daughter: Mandy 8#10oz. pp contraception: natural family planning; possibly vasectomy pap:12/20/2019 NORMAL HPV Neg - HOSPITAL COURSE Hospital Course: STAGE I: Patient is a 26-year-old G2, P1 at 41 and 2 weeks estimated gestational age who presented in labor. Contractions estimated to have begun at 16:00. Initial SVE was 5/80/-2. Epidural for pain management placed shortly after admission. GBS positive. Received initial dose of ampicillin at 19:00 and was given in 30 minute bolus. No augmentation indicated. Patient progressed to complete at 22:40. Second dose of ampicillin initiated. Labored down until pushing initiated at 23:12. BBOW of water noted at introitus with meconium stained amniotic fluid noted on bedding, indicating rupture with forebag. SROM recorded at 23:12. Forebag was artificially ruptured at that time with moderate meconium staining confirmed. Category I tracing throughout Stage I labor. STAGE II: Patient pushed well for 6 minutes to deliver a viable female infant from vertex position. Infant delivered without difficulty from direct OA position. Nuchal cord was noted and was easily reduced. Infant was delivered to maternal chest. cord was clamped x2 and cut after pulsations had ceased. Apgars 8/9. Weight pending. STAGE III: Placenta delivered at 23:27 with manual expression. It was examined and found to be intact. Perineum was examined and found to be intact. No repair indicated. QBL 70. Procedure was well tolerated and without complication. Given late time of delivery, patient was discharge on morning of PPOD#2. course was uncomplicated. Rh positive, Rubella immune. Declined discharge medications. - ALLERGIES Allergies/Adverse Reactions: Allergies Allergy/AdvReac Type Severity Reaction Status Date / Time No Known Drug Allergies Allergy Verified 07/23/21 19:17 - PHYSICAL EXAM AT DISCHARGE General Appearance: positive: No acute distress Neck: positive: Nml inspection Respiratory: positive: Chest non-tender, No respiratory distress, Breath sounds nml Cardiovascular: positive: Regular rate & rhythm Peripheral Pulses: positive: 2+ Abdomen: positive: Non-tender, Other (FF below umbi) Skin: positive: Color nml Neurologic/Psychiatric: positive: Oriented x3, Other (tearful and anxious regarding BF but was able to be calmed. ) - LABS Result Diagrams: 07/23/21 18:30 - FOLLOW UP Follow Up: 1 week - TIME SPENT Time Spent in Discharge (Minutes): 30
== END 2021-07-25 14:15 | disposition home or self-care (01) | DRG 807 ==
LOC: WFO 18:05 → FBP 18:06 → WFO 18:29 → FBP 18:29
PROVIDERS: ADMIT Obstetrics & Gynecology; ATTEND Obstetrics & Gynecology
PROC: 10E0XZZ Delivery of Products of Conception, External Approach (ICD-10-PCS; principal; 2021-07-23)
DX: O69.81X0 Labor and delivery complicated by cord around neck, without compression, not applicable or unspecified (principal); Z37.0 Single live birth; O77.0 Labor and delivery complicated by meconium in amniotic fluid; Z3A.41 41 weeks gestation of pregnancy; O99.824 Streptococcus B carrier state complicating childbirth; O99.344 Other mental disorders complicating childbirth; F41.9 Anxiety disorder, unspecified
CPT/HCPCS: 85025; 86850; 86900; 86901; A9270; J7120; 99213

== ENCOUNTER 2023-01-17 10:18 | Outpatient (CLI) | payer OTHER ==
--- NOTE | 2023-01-17 12:14 | XRAY Report ---
PROCEDURE: Elbow 2 View BILAT INDICATIONS: S50.00xA CONTUSION OF UNSOECIFIED ELBOW TECHNIQUE: 2 views of the elbows bilaterally were acquired. COMPARISON: None. FINDINGS: The right elbow has no fracture or dislocation. There is an anterior and posterior fat pad sign sugge sting an occult fracture. The left elbow has no fracture or dislocation. The left elbow has an anterior and posterior fat pad s ign suggesting an occult fracture.. IMPRESSION: Both elbows have no fracture or dislocation identified, however both elbows have both anterior and po sterior fat pad signs consistent with joint effusions suggesting possible occult fractures.. Reviewed by: Tone Andres on 01/17/2023 11:12 AM JEFFERY Approved by: Tone Andres on 01/17/2023 11:12 AM JEFFERY Station ID: [id number]
== END 2023-01-17 10:19 | disposition home or self-care (01) ==
LOC: DI 10:18
PROVIDERS: ATTEND Nurse Practitioner
DX: S50.00XA Contusion of unspecified elbow, initial encounter (principal); R93.6 Abnormal findings on diagnostic imaging of limbs

== ENCOUNTER 2023-01-17 10:34 | Emergency (ER) | payer OTHER ==
--- NOTE | 2023-01-17 11:31 | ED Physician Documentation ---
PD HPI UPPER EXT INJURY - Stated complaint Stated Complaint: ARM INJURIES - Chief complaint Chief Complaint: Trauma Ext - History of Present Illness Location: Right, Left, Elbow Type of injury: Fall Where injury occurred: Home Timing - onset: Enter time Timing - duration: Hours Timing - details: Abrupt onset, Still present Improved by: Rest, Immobilization Worsened by: Moving, Palpating Associated symptoms: No: Weakness, Numbness, Tingling, Swelling Contributing factors: No: Anticoagulated, Prior ortho surgery, Prosthetic joint Similar symptoms before: Has not had sx before Recently seen: Not recently seen - Additonal information Additional information: 28-year-old female was at home last night when she walked into her daughter's room and tripped over a suitcase falling forward and landing on both of her elbows. She hit her head but did not have LOC and has no concussion symptoms now. She has pain to both of the elbows the right is worse than the left. She has pain especially with flexion extension and internal and external rotation. She has a feeling that there is a stop point to the range of motion. She did have some temporary loss of sensation to both arms when the fall occurred that resolved nearly immediately. Review of Systems Constitutional: denies: Fever Eyes: denies: Decreased vision Ears: denies: Ear pain Nose: denies: Congestion Throat: denies: Sore throat Cardiac: denies: Chest pain / pressure Respiratory: denies: Cough GI: denies: Abdominal Pain, Nausea PD PAST MEDICAL HISTORY - Allergies Allergies/Adverse Reactions: Allergies Allergy/AdvReac Type Severity Reaction Status Date / Time No Known Drug Allergies Allergy Verified 07/23/21 19:17 - Social History Smoking Status: Never smoker PD ED PE NORMAL - Vitals Vital signs reviewed: Yes - General General: Alert and oriented X 3, No acute distress, Well developed/nourished, Other (happy 28 y/o female in room with oswaldo wrap to both elbows seems to have fair ROM to the elbows. ) - HEENT HEENT: Atraumatic, PERRL, EOMI, Other (no tenderness to deep palpation of the scalp. ) - Neck Neck: Supple, no meningeal sign, No bony TTP - Respiratory Respiratory: No respiratory distress - Derm Derm: Normal color, Warm and dry, No rash - Extremities Extremities: No deformity, No edema, Other (tenderness to the radial head on the right and to the olecrenon bilaterally. Good ROM bilaterally more restricted on the right and with pain to flex/ext sup/pronate bilat. ) - Neuro Neuro: Alert and oriented X 3, regulatory affairs intern 2-12 intact, No motor deficit, No sensory deficit, Normal speech Eye Opening: Spontaneous Motor: Obeys Commands Verbal: Oriented GCS Score: 15 - Psych Psych: Normal mood, Normal affect Results - Vitals Vitals: Vital Signs - 24 hr 01/17/23 01/17/23 10:46 13:03 Temperature 36.6 C 36.6 C Heart Rate 78 85 Respiratory 14 16 Rate Blood Pressure 136/78 H 122/79 O2 Saturation 99 100 Oxygen O2 Source Room air - Rads (name of study) elbows Relevant Findings:: Prelim report reviewed (Impression: Both elbows have no fracture or dislocation identified, however both elbows have both anterior and posterior fat-pad signs consistent with joint effusions suggesting possible occult fractures.), EMP independent interpretation of test PD Medical Decision Making - ED course Complexity details: reviewed old records, reviewed results, re-evaluated patient, considered differential, d/w patient ED course: 28-year-old female with a fall onto both elbows has pain to both elbows as well as reduced range of motion. She does have sail sign bilaterally and her right arm is placed into a posterior splint and into a sling. She has worse symptoms on the right. Her left arm has no radiographic abnormality with the exception of a sail sign and she is placed into a sling for comfort. Departure - Departure Disposition: 01 Home, Self Care Clinical Impression: Sprain of elbow, left Qualifiers: Encounter type: initial encounter Qualified Code(s): S53.402A - Unspecified sprain of left elbow, initial encounter Condition: Stable Instructions: ED Sprain Elbow Follow-Up: RANDOLPH Herrera [Provider Group] Comments: Yumiko, today it looks like you have sprained both of your elbows. The treatment for this is symptomatic and should include early range of motion and use of the sling for comfort. On your right arm we have placed a posterior splint and the recommendation is to leave this in place for a week and do range of motion following that. The expectation is resolution of your symptoms within 7 to 10 days. If you do not have that resolution a follow-up with orthopedics is indicated. Discharge Date/Time: 01/17/23 13:19
[2023-01-17 13:06] VITALS: BP 122/79
[2023-01-17] MEDS: SODIUM CHLORIDE 0.9% 1,000 ML IV STA (13:14)
[2023-01-17] MEDS: POTASSIUM CHLOR 10 MEQ/100 ML 10 MEQ/100 ML BAG IV ONE (13:15)
== END 2023-01-17 13:19 | disposition home or self-care (01) ==
LOC: ED 10:34
DX: S53.402A Unspecified sprain of left elbow, initial encounter (principal); W01.0XXA Fall on same level from slipping, tripping and stumbling without subsequent striking against object, initial encounter; Y93.01 Activity, walking, marching and hiking; Y92.003 Bedroom of unspecified non-institutional (private) residence as the place of occurrence of the external cause; S50.00XA Contusion of unspecified elbow, initial encounter; R93.6 Abnormal findings on diagnostic imaging of limbs
CPT/HCPCS: 99282; 99283